=== PATIENT | female | born 2000 | race Caucasian/White ===

== ENCOUNTER 2019-01-18 16:17 | Emergency (ER) | payer BC, SELFPAY ==
[2019-01-18 16:20] VITALS: BP 121/72; PULSE 95; RESP 18; TEMP 36.7; O2SAT 99
[2019-01-18] MEDS: Normal Saline 1,000 ML 1000 ML IV ×3 (17:09→18:17)
[2019-01-18 17:21] LABS: HGB 14.2 g/dL (12.0-15.5); Mean Corp. HGB Concentration 33.8 g/dL (32.0-36.0); Mean Corpuscular Hemoglobin 30.8 pg (27.0-33.0); Mean Corpuscular Volume 91.1 fL (80-95); Mean Platelet Volume 10.7 fL (8.0-11.0); Platelet Count 212 x1000/uL (130-400); RBC 4.61 m/cumm (4.00-5.20)
[2019-01-18 17:30] LABS: Mono Screening POSITIVE (Negative)
[2019-01-18 17:42] LABS: ALT 509 U/L (14-59); AST 395 U/L (15-37); Albumin 3.6 g/dL (3.4-5.0); Alkaline Phosphatase 310 U/L (46-116); Anion Gap 11.4 mmol/L (3-11); BUN 9 mg/dL (7-18); Bilirubin, Total 4.4 mg/dL (0.2-1.0); CO2 27.6 mmol/L (21.0-32.0); CREATININE 0.95 mg/dL (0.55-1.02); Calcium 9.1 mg/dL (8.5-10.1); Chloride 98 mmol/L (98-107); Glucose 90 mg/dL (70-100); Sodium 137 mmol/L (136-145); Total Protein 8.6 g/dL (6.4-8.2)
[2019-01-18 17:57] LABS: Absolute Lymphocyte Count 14.51 k/cumm (1.2-3.4); Absolute Monocyte Count 0.33 k/cumm (0.11-0.7); Absolute Neutrophil Count 1.47 k/cumm (1.2-6.7); Atypical Lymphocytes % 47
[2019-01-18 17:58] LABS: Diff Comment Manual Differential; RBC Morphology Normal
--- NOTE | 2019-01-18 19:11 | DI.CT_ITS ---
SYMPTOM/DIAGNOSIS: LUQ PAIN, ELEVATED BILIRUBIN, KNOWN MONO ABDOMEN AND PELVIC CT: CT examination of the abdomen and pelvis was performed with a bolus infusion of 100 cc's of Omnipaque 350. There appear to be small bilateral pleural effusions. There is free intraperitoneal fluid which is most easily seen in the gallbladder fossa and in the pelvis. There is hepatosplenomegaly. No focal significant hepatic or splenic lesion is seen. Pancreas is unremarkable in appearance. No biliary dilatation. Adrenals and kidneys appear normal. Abdominal aorta is of normal diameter and no major vascular abnormality is seen. No significant abdominal wall hernia is seen. No significant adenopathy is seen. CONCLUSION: Hepatosplenomegaly, abdominal ascites and bilateral pleural effusions. No other focal pathology identified. No evidence of appendicitis or diverticulitis.
[2019-01-18 19:12] VITALS: BP 116/68; PULSE 89; RESP 18; O2SAT 98
[2019-01-18 19:17] LABS: Bilirubin Large (Negative); Blood Negative (Negative); Clarity Sl Cloudy (Clear); Glucose 100 mg/dL (Negative); Ketones 40 mg/dL (Negative); Leukocyte Esterase Negative (Negative); Nitrite Negative (Negative); Urobilinogen >=8.0 EU/dL (Up TO 0.2); pH 5.5 (5-8)
[2019-01-18 19:35] LABS: Bacteria Many HPF (Negative); Crystals Negative HPF (Negative); Epithelial Cells Few HPF (Negative); Other Cells Negative (Negative); RBC Negative (0-2)
[2019-01-18 19:36] LABS: C & S Indicated? Yes; Casts Negative LPF (Negative); Mucus Heavy (Negative)
--- NOTE | 2019-01-18 20:41 | DI.VRAD_ITS ---
EXAM: CT Abdomen and Pelvis With Contrast EXAM DATE/TIME: 01/18/2019 7:13 PM CLINICAL HISTORY: 18 years old, female; Abdominal pain; Localized; Left upper quadrant (luq); Patient HX: Luq pain, elevated bili, known mono TECHNIQUE: Imaging protocol: Computed tomography of the abdomen and pelvis with intravenous contrast. Radiation optimization: All CT scans at this facility use at least one of these dose optimization techniques: automated exposure control; mA and/or kV adjustment per patient size (includes targeted exams where dose is matched to clinical indication); or iterative reconstruction. Contrast material: [id number]; Contrast volume: 100 ml; Contrast route: IV; COMPARISON: No relevant prior studies available. FINDINGS: Pleural space: Small bilateral pleural effusions. Liver: There is hepatomegaly. The left lobe liver crosses the midline, anatomic variant. Gallbladder and bile ducts: Trace pericholecystic fluid. Pancreas: Normal. No ductal dilation. Spleen: Splenomegaly present. The spleen measures up to 14 cm. There is a subtle low density focus series or images 20 and 21 measuring 7 mm. It is appreciated series 6 images 28 and 29. It appears to be adequate hepatic in etiology rather than splenic, probable cyst. Adrenals: Normal. No mass. Kidneys and ureters: Normal. No hydronephrosis. Stomach and bowel: Unremarkable. No obstruction. No mucosal thickening. Appendix: No evidence of appendicitis. Intraperitoneal space: There is a small amount of free fluid in the pelvis. Vasculature: Unremarkable. No abdominal aortic aneurysm. Lymph nodes: Unremarkable. No enlarged lymph nodes. Bladder: Bladder not well distended. Reproductive: Unremarkable as visualized. Bones/joints: Unremarkable. No acute fracture. Soft tissues: Unremarkable. IMPRESSION: 1. Hepatosplenomegaly. 2. Mild free fluid. COMMENT: Preliminary interpretation is based on receipt of 290 image(s). A final report will be issued subsequently. Dictated and Authenticated by: Stephanie Cheema MD. Ordering:MICHAEL Razo MD
[2019-01-18] MEDS: Omnipaque 350 MG/ML 100 ML BTL IJ (20:47)
[2019-01-18] MEDS: Ondansetron 4 MG/2 ML VIAL (20:57)
--- NOTE | 2019-01-18 21:14 | W.ED.GENAD ---
Discharge Plan Disposition Patient Disposition: HOME Condition: Fair Discharge Details Chief Complaint: Abd Prob Clinical Impression: Infectious mononucleosis, Spleen enlargement Primary Care Provider: Tabatha Lauren V ED Provider: Danni Schmitz Home Meds and New Rx's Prescriptions: No Action aluminum chloride 20 % solution 1 applic Topical DAILY Qty: 180 RF: 0 levonorgestrel-ethinyl estrad [Lessina] 0.1-20 mg-mcg tablet 1 tab PO DAILY Qty: 84 RF: 1 ondansetron HCl [Zofran] 4 mg Tablet 4 mg PO DIRECTED PRNRF: 0 Discharge Instructions Instructions: Mononucleosis (ED) Additional Instructions: Push fluids by mouth. Be sure to stay well-hydrated. Rest activities as tolerated. Avoid any contact sports or contact to the abdomen. Use nausea medication as prescribed. Followup with Pediatrics nursing home admissions director in the morning; Dr. Tabatha Lauren. No school for at least 1 week. Return for any increasing abdominal pain, worsening symptoms or alarming symptoms, weakness, fatigue as discussed Stand Alone Forms: School Release Medical Decision Making Patient presents after diagnosis of mono 5 days ago at school, was treated conservatively at home. Patient failed to hydrate orally then began to develop nausea and vomiting in the last 24 hours and further has been dehydrated. Patient presents with mild left upper quadrant abdominal pain but overall fairly benign abdominal exam. Patient has no significant pharyngitis, voice change or trismus. Patient does have moderate cervical lymphadenopathy present. Patient received 3 L of IV fluid prior to making any urine. Patient had not urinated in the prior 24 hours. My concern primarily was with patient's dehydration. Patient finally was able to urinate and urinated a Coca-Cola colored urine consistent with bilirubin. Patient's labs also consistent with hyperbilirubinemia. Bilirubin 4.4. LFTs noted to be elevated in addition. On reexamination patient appeared mildly clammy. She throughout patient's course her exam remains fairly benign. I did speak with my attending regarding this case the hyperbilirubinemia, transaminase elevation in the presence of mono. My attending does feels appropriate for discharge home. I did discuss this with the family. They would prefer treatment at home. I also spoke with the cupola tapper helper Dr. Hicks who agrees with plan of care and will have on-call pediatrics follow-up with the patient in the morning. Patient be provided Zofran and encourage oral hydration. Patient will be given a p.o. challenge prior to discharge. Family would like to stay to be sure she makes more urine and does appear slightly improved. Toradol provided for headache which is present. Reevaluation after oral challenge. Patient's headache is resolved. She is feeling better has made urine a second time in the emergency room. She does feel comfortable discharge home and follow-up over the phone with cupola tapper helper in the morning. HPI General Date/Time Provider Initiated Documentation: 01/18/19 16:55. HPI Narrative: Patient presents for complaints of nausea, vomiting and concerns of dehydration. Patient reports she was diagnosed with mono 5 days ago while at college after experiencing viral symptoms and sore throat the week prior. Patient had associated fatigue. Swollen glands in the neck. [place] testing positive. Patient had been resting in not attending class but admits to not hydrating well. Patient reports the last 24 hours increase in nausea and vomiting. Now having difficulty holding down any fluids. Patient does admit to left upper quadrant abdominal pain which is mild. Patient is moving bowels. Patient has not urinated since yesterday morning. Patient reports persistent fatigue. Patient denies significant sore throat, difficulty swallowing, voice change. Patient does report a mild headache. Mild dizziness. No chest pain, difficulty breathing or shortness of breath. Denies back pain Related Data Home Medications Medication Instructions Recorded Confirmed aluminum chloride 20 % topical 1 applic TOPICAL DAILY #180 ml 05/07/18 01/18/19 solution levonorgestrel-ethinyl estradiol 1 tab PO DAILY #84 tab 11/07/18 01/18/19 0.1 mg-20 mcg tablet ondansetron HCl [Zofran] 4 mg PO DIRECTED PRN 01/18/19 01/18/19 Previous Rx's Medication Instructions Recorded aluminum chloride 20 % topical 1 applic TOPICAL DAILY #180 ml 05/07/18 solution levonorgestrel-ethinyl estradiol 1 tab PO DAILY #84 tab 11/07/18 0.1 mg-20 mcg tablet Allergies Allergy/AdvReac Type Severity Reaction Status Date / Time doxycycline Allergy Mild Verified 01/18/19 16:32 General Stated Complaint: Abd Prob ZEB: 3 Review of Systems Review of Systems CONSTITUTIONAL: The patient denies fevers, chills. Mild headache EYES: Denies vision changes, blurry vision, or eye pain. ENT: Denies hearing changes, tinnitus, vertigo, mild sore throat. CARDIAC: Denies chest pain, SOB. RESPIRATORY: Denies cough, sputum. Denies difficulty breathing. GASTROINTESTINAL: luq abdominal pain. denies changes in bowel. nausea and vomiting present GENITOURINARY: Denies dysuria, or frequency of urination. MUSCULOSKELETAL: Denies Joint pain, gait changes. NEUROLOGIC: Denies headaches, Denies focal weakness. Denies numbness. INTEGUMENT: Denies rashes. PSYCHIATRIC: Denies behavior changes. Denies anxiety or depression. ENDOCRINOLOGY: Denies fatigue. PSYCHIATRY: Denies depression, agitation or anxiety [facility] Medical History Wears contact lenses Wears glasses [place] teeth extracted (Resolved) Had all 4 teeth taken out 12/2016 Surgical History Tonsillectomy and adenoidectomy Family History Mother Healthy adult Father Healthy adult Other Diabetes MGM- type 2, mat uncle type 1 Essential hypertension MGM, MGF Personal history of malignant neoplasm PGM-colon, PGF-leukemia, MGF-skin Heart disease MGF Hyperlipidemia MGM, MGF Myocardial infarction MGM, MGF Stroke PGM Social History Smoking/Tobacco Use Status: Never Alcohol Intake: never Drug use: Never Substance use type: does not use Household members: family Housing: house 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 Alert and alert. HENMT: Head nomocephalic, normal to inspection. Atraumatic. Hearing grossly normal. EYES: General normal appearance. Alignment normal. Eyelids normal. Conjunctiva normal. NECK: Normal visual inspection. FROM. Trachea midline. No Midline tenderness. Cervical lymphadenopathy present bilaterally, moderate CHEST: Normal insepection of the chest. RESP: Normal respiratory effort. Speaking full sentences. No cough. No audible wheezing. No retractions. CARDIO: No JVD. GI: No obvious distention. No bruising. Soft abdomen. Very mild tenderness in the left upper quadrant without obvious rebound or guarding. No peritoneal signs. MUSCULOSKELETAL: Normal Gait. FROM of all extremities. SKIN: Normal. Dry. No rashes. NEURO: Alert and awake. Speech clear. PSYCH: Normal affect. Cooperative. Course Vital Signs Temperature 36.7 C 01/18/19 16:20 Pulse 95 H 01/18/19 16:20 Respiratory Rate 18 01/18/19 16:20 Blood Pressure 121/72 01/18/19 16:20 Pulse Oximetry 99 01/18/19 16:20 Temperature 36.7 C 01/18/19 16:20 Temperature Source Skin 01/18/19 16:20 Pulse 89 01/18/19 19:12 Respiratory Rate 18 01/18/19 19:12 Respiratory Effort 01/18/19 19:13 Respiratory Depth Normal 01/18/19 19:13 Respiratory Pattern Normal 01/18/19 19:13 Blood Pressure 116/68 01/18/19 19:12 Blood Pressure Position Supine 01/18/19 16:20 Pulse Oximetry 98 01/18/19 19:12 Oxygen Delivery Method Room Air 01/18/19 19:12 Oxygen Flow Rate 0 01/18/19 19:12 Pain Level 4 01/18/19 19:12 Lab/Test Results Lab/Test Results: 01/18/19 19:10 Urine - Reflex from Ua Urine Culture - Pending Laboratory Tests Range/Units 01/18/19 01/18/19 01/18/19 16:50 16:50 16:50 WBC (4.4-10.8) k/cumm 16.30 H RBC (4.00-5.20) m/cumm 4.61 Hgb (12.0-15.5) g/dL 14.2 Hct (36.0-46.0) % 42.0 MCV (80-95) fL 91.1 MCH (27.0-33.0) pg 30.8 MCHC (32.0-36.0) g/dL 33.8 RDW (11.7-14.6) % 13.0 Plt Count (130-400) x1000/uL 212 MPV (8.0-11.0) fL 10.7 Immature Gran % 0.0 Neutrophils % 9.0 Lymphocytes % 42.0 Atypical Lymphs % 47 Monocytes % 2.0 Eosinophils % 0.0 Basophils % 0.0 Absolute Neutrophils (1.2-6.7) k/cumm 1.47 Absolute Lymphocytes (1.2-3.4) k/cumm 14.51 H Absolute Monocytes (0.11-0.7) k/cumm 0.33 Absolute Eosinophils (0.0-0.7) k/cumm 0.00 Absolute Basophils (0.0-0.2) k/cumm 0.00 Differential Comment Manual differential RBC Morphology Normal PT (9.3-11.0) sec INR (0.9-1.1) APTT (21.0-31.4) sec Sodium (136-145) mmol/L 137 Potassium (3.5-5.1) mmol/L 4.0 Chloride (98-107) mmol/L 98 Carbon Dioxide (21.0-32.0) mmol/L 27.6 Anion Gap (3-11) mmol/L 11.4 H BUN (7-18) mg/dL 9 Creatinine (0.55-1.02) mg/dL 0.95 Estimated GFR/1.73 m2 (mL/min/1.73m2) >= 60.00 Glucose (70-100) mg/dL 90 Calcium (8.5-10.1) mg/dL 9.1 Total Bilirubin (0.2-1.0) mg/dL 4.4 H AST (15-37) U/L 395 H ALT (14-59) U/L 509 H Alkaline Phosphatase (46-116) U/L 310 H Total Protein (6.4-8.2) g/dL 8.6 H Albumin (3.4-5.0) g/dL 3.6 Urine Color (Yellow) Urine Clarity (Clear) Urine pH (5-8) Ur Specific [place] (1.005-1.025) Urine Protein (Negative) mg/dL Urine Ketones (Negative) mg/dL Urine Blood (Negative) Urine Nitrite (Negative) Urine Bilirubin (Negative) Urine Urobilinogen (Up TO 0.2) EU/dL Ur Leukocyte Esterase (Negative) Urine RBC (0-2) Urine WBC (0-5) HPF Ur Epithelial Cells (Negative) HPF Urine Crystals (Negative) HPF Urine Bacteria (Negative) HPF Urine Casts (Negative) LPF Urine Mucus (Negative) Urine Other (Negative) Ur Culture Indicated? Urine Glucose (Negative) mg/dL Monoscreen (Negative) Positive Patient ABO/Rh Antibody Screen Range/Units 01/18/19 01/18/19 01/18/19 16:50 16:50 19:10 WBC (4.4-10.8) k/cumm RBC (4.00-5.20) m/cumm Hgb (12.0-15.5) g/dL Hct (36.0-46.0) % MCV (80-95) fL MCH (27.0-33.0) pg MCHC (32.0-36.0) g/dL RDW (11.7-14.6) % Plt Count (130-400) x1000/uL MPV (8.0-11.0) fL Immature Gran % Neutrophils % Lymphocytes % Atypical Lymphs % Monocytes % Eosinophils % Basophils % Absolute Neutrophils (1.2-6.7) k/cumm Absolute Lymphocytes (1.2-3.4) k/cumm Absolute Monocytes (0.11-0.7) k/cumm Absolute Eosinophils (0.0-0.7) k/cumm Absolute Basophils (0.0-0.2) k/cumm Differential Comment RBC Morphology PT (9.3-11.0) sec 10.0 INR (0.9-1.1) 1.0 APTT (21.0-31.4) sec 25.0 Sodium (136-145) mmol/L Potassium (3.5-5.1) mmol/L Chloride (98-107) mmol/L Carbon Dioxide (21.0-32.0) mmol/L Anion Gap (3-11) mmol/L BUN (7-18) mg/dL Creatinine (0.55-1.02) mg/dL Estimated GFR/1.73 m2 (mL/min/1.73m2) Glucose (70-100) mg/dL Calcium (8.5-10.1) mg/dL Total Bilirubin (0.2-1.0) mg/dL AST (15-37) U/L ALT (14-59) U/L Alkaline Phosphatase (46-116) U/L Total Protein (6.4-8.2) g/dL Albumin (3.4-5.0) g/dL Urine Color (Yellow) Lipan Urine Clarity (Clear) Sl cloudy Urine pH (5-8) 5.5 Ur Specific [place] (1.005-1.025) 1.020 Urine Protein (Negative) mg/dL 100 H Urine Ketones (Negative) mg/dL 40 H Urine Blood (Negative) Negative Urine Nitrite (Negative) Negative Urine Bilirubin (Negative) Large H Urine Urobilinogen (Up TO 0.2) EU/dL >=8.0 Ur Leukocyte Esterase (Negative) Negative Urine RBC (0-2) Negative Urine WBC (0-5) HPF 3-5 Ur Epithelial Cells (Negative) HPF Few Urine Crystals (Negative) HPF Negative Urine Bacteria (Negative) HPF Many Urine Casts (Negative) LPF Negative Urine Mucus (Negative) Heavy Urine Other (Negative) Negative Ur Culture Indicated? Yes Urine Glucose (Negative) mg/dL 100 Monoscreen (Negative) Patient ABO/Rh O Positive Antibody Screen Negative POC- Test(urine) Negative POC Strep Test-KEIKO(Rapid) Start: 01/18/19 16:59 Freq: .Rapid Strep Test Status: Active Protocol: Document 01/18/19 17:25 (Rec: 01/18/19 17:25 [email or web address]) Strep test-KEIKO(Rapid)-POC POC-Strep test-KEIKO (Rapid) Negative POC-Strep test-KEIKO (Rapid) Negative
[2019-01-18 22:02] VITALS: BP 111/64; PULSE 95; RESP 18; O2SAT 98
[2019-01-18] MEDS: Ketorolac 15 MG/ML VIAL IVP (22:30)
[2019-01-18] MEDS: Ondansetron O.D.T. 4 MG TABEF 12 MG PO (23:16)
[2019-01-18 23:19] VITALS: BP 118/66; PULSE 90; RESP 18; TEMP 37.4; O2SAT 96
[2019-01-21 10:41] LABS: Hepatitis A Antibody IgM Negative (NEGAT); Hepatitis B Core Antibody Negative (NEGAT); Hepatitis B surface Ag Negative (NEGAT); Hepatitis C Ab w Rflx HCV PCR Negative (NEGAT)
== END 2019-01-18 19:10 | disposition home or self-care (01) ==
PROVIDERS: Emergency Provider Physician Assistant; PCP Pediatrics
DX: B27.90 Infectious mononucleosis, unspecified without complication (principal); R11.2 Nausea with vomiting, unspecified; R10.12 Left upper quadrant pain; E86.0 Dehydration; R16.1 Splenomegaly, not elsewhere classified; R74.0 Nonspecific elevation of levels of transaminase and lactic acid dehydrogenase [LDH]; R82.2 Biliuria
CPT/HCPCS: 36415; 80053; 81025; 86704; 86709; 86803; 86850; 86900; 86901; 87340; 87880; 96361; 96374; 96375; 99285; 74177; 81003; 81015; 85025; 85610; 85730; 86308; 87086; J1885; J2405; J3490

== ENCOUNTER 2020-07-17 04:01 | Outpatient (CLI) | payer BC, SELFPAY ==
--- NOTE | 2020-07-17 08:30 | DI.US_ITS ---
EXAM: US BREAST LT COMPLETE CLINICAL HISTORY: nodule 3coclock position at areola/skin interface,BREAST LUMP, N63.0 TECHNIQUE: Ultrasound right breast performed using standard protocol. COMPARISON: No exams were available for comparison FINDINGS: All 4 quadrants of the left breast were evaluated sonographically. At the 3 o'clock position 1 cm fr om the nipple there is a 2.4 x 1.6 x 1.9 cm solid hypoechoic lobulated mass which corresponds to the palpable abnormality. No internal blood flow is seen. Nodules radially oriented. No posterior acou stic enhancement or shadowing is seen. No internal echogenic foci are seen. No other cystic or winter d masses are seen sonographically. IMPRESSION: 2.4 x 1.6 x 1.9 cm solid hypoechoic mass at the 3 o'clock position of the left breast corresponding t o the palpable abnormality. 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 Neoplasm cannot be entire ly excluded. Biopsy may be considered for further evaluation. Findings were discussed with the patient on the date of the examination. DATA REPOSITORY:
== END 2020-07-17 04:21 ==
PROVIDERS: PCP Pediatrics; Visit Provider Surgery
DX: N63.25 Unspecified lump in the left breast, overlapping quadrants (principal)
CPT/HCPCS: 76642

== ENCOUNTER 2021-09-06 12:35 | Outpatient (REF) | payer BC, SELFPAY ==
--- NOTE | 2021-09-06 09:30 | PAPFT_PTH ---
PATIENT: Rosa Ball LOC: [facility] U#:[id number] AGE/SX: 20/F ROOM: RE09/06/[address]: Mary Gresham NP : 2000 BED: DIS: 09/06/2021 SPEC #: [id number] RECD: 09/06/21 13:17 STATUS: VINCE REAlexus #: [id number] ASTRID: 09/06/21 09:[address]: Mary Gresham NP DEPT: [facility] Cytology RECD BY: Olga Saleh ENTERED: 09/06/21 13:17 SP TYPE: PAPFT OTHR DR: Reyna Rivero MD Tissues: 1 - CX/ENDOCX FOR PAP SMEARS Procedures: PAP THIN PREP/[facility] Screening Comments: [id number] (CHLAMYDIA/GC)
[2021-09-07 15:04] LABS: Chlamydia Result Negative (Negative); GC Result Negative (Negative)
== END 2021-09-06 12:36 | disposition home or self-care (01) ==
LOC: LBN 12:35
PROVIDERS: Visit Provider Nurse Practitioner Women's Health
DX: Z11.3 Encounter for screening for infections with a predominantly sexual mode of transmission (principal); Z12.4 Encounter for screening for malignant neoplasm of cervix
CPT/HCPCS: 87491; 87591; 88142

== ENCOUNTER 2024-09-23 08:48 | Outpatient (REF) | payer BC, SELFPAY ==
--- NOTE | 2024-09-23 08:30 | PAPFT_PTH ---
PATIENT: Rosa Ball LOC: [facility] U#:[id number] AGE/SX: 23/F ROOM: RE09/23/[address]: Mary Gresham NP : 2000 BED: DIS: 09/23/2024 SPEC #: [id number] RECD: 09/23/24 13:14 STATUS: VINCE NEFF #: [id number] ASTRID: 09/23/24 08:[address]: Mary Gresham NP [facility]PT[facility] Cytology RECD BY: Olga Saleh ENTERED: 09/23/24 13:15 SP TYPE: PAPFT OT DR: Unknown,Unknown Tissues: 1 - CX/ENDOCX FOR PAP SMEARS Procedures: PAP THIN PREP/[facility] Screening Comments: [id number]
== END 2024-09-23 08:49 | disposition home or self-care (01) ==
LOC: LBN 08:48
PROVIDERS: Visit Provider Nurse Practitioner Women's Health
DX: Z12.4 Encounter for screening for malignant neoplasm of cervix (principal)
CPT/HCPCS: 88142